=== PATIENT | female | born 1985 | race Caucasian/White ===

== ENCOUNTER → 2023-10-20 | Outpatient (CLI) | payer MEDICAID ==
[~2023-10-20] MED LIST: ARMOUR THYROID30 M1 PO; B-6200 MG PO; PHENERGAN 25 TA25 MG PO; PROMETHAZINE12.5 M5; ZOLOFT 50MG50 MG PO
== END ==
LOC: RAD 18:56
DX: M25.532 Pain in left wrist (principal)